=== PATIENT | male | born 1960 | race Caucasian/White ===

== ENCOUNTER 2016-10-12 13:44 | Emergency (ER) | payer OTHER ==
[~2016-10-12] VITALS: Ht 167.6 cm; Wt 58.5 kg
[~2016-10-12 13:44] MED LIST: CELE200C PO; METFORMIN; RIVA20TA PO
[2016-10-12 13:54] VITALS: Ht 167.6 cm; Wt 58.5 kg
[2016-10-12] MEDS ORDERED: FER325 PO (18:37)
[2016-10-12] MEDS ORDERED: TEMA30CA PO (18:38)
[2016-10-12] MEDS ORDERED: METF500T4 PO (18:39)
[2016-10-12] MEDS ORDERED: OMEP40CA6 PO (18:40)
[2016-10-12] MEDS ORDERED: SERT50TA6 PO (18:43)
[2016-10-12] MEDS ORDERED: TRAZ50TA18 PO (18:44)
[2016-10-12] MEDS ORDERED: DIATR MEGLU/DIATRIZOATE SODIUM 120 ML BTL ONE (19:37)
[2016-10-12 20:07] VITALS: BP 116/56; PULSE 77; RESP 16; TEMP 98.6
--- NOTE | 2016-10-12 20:14 | ERD ---
ER Documentation Chief Complaint Date/Time DATE: 10/12/16 TIME: 20:12 Chief Complaint DISLODGED GTUBE AT 1 PM TODAY HPI Patient is a 56-year-old male with previous cancer presents for a G-tube. He said that his G-tube came out at 1 PM today. He came to the ER. He did bring the G-tube in with him and the balloon has burst. The patient usually puts Ensure through the G-tube. He said that he is able to eat some by mouth. Upon review of old medical records this is the patient's sixth visit to the ER since 2013. His primary doctor is Dr. Lazaro Trujillo. ROS All systems reviewed and are negative except as per history of present illness. Medications Home Meds Reported Medications Trazodone Hcl* (Desyrel*) 50 Mg Tablet, 50 MG PO QHS, #30 TAB 10/12/16 Sertraline Hcl* (Sertraline Hcl*) 50 Mg Tablet, 50 MG PO DAILY, #30 TAB TAKE 25MG FOR 1 WEEK THEN 50MG DAILY 10/12/16 Omeprazole* (Omeprazole*) 40 Mg Capsule.dr, 40 MG PO DAILY, #30 CAP 10/12/16 Metformin* (Glucophage*) 500 Mg Tab, 500 MG PO WITH LUNCH DINNER, #60 TAB 10/12/16 Temazepam* (Temazepam*) 30 Mg Capsule, 30 MG PO HS Y for INSOMNIA, CAP 10/12/16 Ferrous Sulfate* (Ferrous Sulfate*) 325 Mg Tabec, 325 MG PO TID, TAB 10/12/16 Discontinued Reported Medications [Metformin] No Conflict Check 04/28/16 Celecoxib* (Celebrex*) 200 Mg Capsule, 200 MG PO DAILY, CAP 03/20/16 Rivaroxaban* (Xarelto*) 20 Mg Tablet, 20 MG PO DAILY, TAB HOLD PER PCP*PT HAS BEEN OFF THIS RX FOR 4 DAYS PER PT.* 11/03/14 Allergies Allergies: Coded Allergies: No Known Allergy (Unverified , 10/12/16) PMhx/Soc Anesthesia Reaction: No Hx Neurological Disorder: No Hx Respiratory Disorders: No Hx Cardiac Disorders: No Hx Psychiatric Problems: Yes Hx Miscellaneous Medical Probl: Yes (MICHAEL, DVT) Hx Alcohol Use: No Hx Substance Use: No Hx Tobacco Use: No FmHx Family History: No diabetes Physical Exam Vitals Vital Signs Date Time Temp Pulse Resp B/P Pulse Ox O2 Delivery O2 Flow Rate FiO2 10/12/16 20:07 98.6 77 16 116/56 99 Room Air 10/12/16 13:54 98.7 73 18 111/63 99 Physical Exam Const: No acute distress Head: Atraumatic Eyes: Normal Conjunctiva ENT: Normal External Ears, Nose and Mouth. Neck: Full range of motion..~ No meningismus. Resp: Clear to auscultation bilaterally Cardio: Regular rate and rhythm, no murmurs Abd: Soft, G-tube site in the left upper quadrant without any tube in place Skin: No petechiae or rashes Back: No midline or flank tenderness Ext: No cyanosis, or edema Neur: Awake and alert Psych: Normal Mood and Affect Results 24 hrs Current Medications Medications (Trade) Dose Ordered Sig/Andrez Route PRN Reason Start Time Stop Time Status Last Admin Dose Admin Diatrizoate Meglum/ Diatrizoate Sod (Gastrografin 66-10 Solution) 120 ml STK-MED ONCE .ROUTE 10/12/16 19:37 10/12/16 19:38 DC 10/12/16 20:07 Procedures/MDM G-tube Insertion by me: Sterile technique, local prep and lubrication, time out performed. Location: Epigastrum Device: 20 Nepali G-tube Technique: Claudia pressure with twisting motion. Balloon inflation Results: Gastric contents expressed. Compl: none X-ray Abdomen 1V Interpreted by me: Free Air: None Bowel Gas: Nonspecific Contrast: Intraluminal Patient is a 56-year-old male presents for G-tube replacement. I was able to dilate with a forceps in place a G-tube in the previous G-tube site. The patient tolerated the entire procedure. There was no blood loss. Patient will be discharged. Departure Diagnosis: Primary Impression: Encounter for feeding tube placement Condition: Fair Patient Instructions: Feeding Tube Replacement Referrals: LAZARO TRUJILLO MD (PCP) Additional Instructions: Call your primary care doctor TOMORROW for an appointment during the next 1 WEEK.Tell the secretary administrative assistant that you were referred from this facility.See the doctor sooner or return here if your condition worsens before your appointment time. FABIÁN SMITH MD Oct 12, 2016 20:14
--- NOTE | 2016-10-12 20:26 | RADRPT ---
PROCEDURE: XR Abdomen. CLINICAL INDICATION: Gastrostomy tube placement TECHNIQUE: AP abdomen x-ray. 25 cc of Gastrografin was administered. COMPARISON: None. FINDINGS: There is no evidence of obstruction. Contrast within the gastric lumen is seen. No extravasation of contrast is seen. There are no abnormal calcifications overlying the urinary tracts. No osseous les ion is seen. IMPRESSION: Contrast within the gastric lumen without evidence of extravasation indicating satisfactory placemen t of a gastrostomy tube. RPTAT: HPNM Physician Deisy Date Time Electronically viewed and signed by Physician Deisy on 10/12/2016 20:25 /
== END 2016-10-12 20:08 | disposition home or self-care (01) ==
LOC: E/R 13:44
DX: Z43.1 Encounter for attention to gastrostomy (principal); Z79.01 Long term (current) use of anticoagulants; Z79.4 Long term (current) use of insulin; Z85.830 Personal history of malignant neoplasm of bone
CPT/HCPCS: 43760; 74000; Z7502; Z7610

== ENCOUNTER 2017-04-30 14:20 | Outpatient (CLI) | payer OTHER ==
[~2017-04-30] VITALS: Ht 168.9 cm; Wt 53.9 kg
[~2017-04-30 14:20] MED LIST changes: -CELE200C PO; +FER325 PO; +METF500T4 PO; -METFORMIN; +OMEP40CA6 PO; -RIVA20TA PO; +SERT50TA6 PO; +TEMA30CA PO; +TRAZ50TA18 PO
[2017-04-30 14:27] VITALS: BP 90/58; PULSE 74; RESP 20; Ht 168.9 cm; Wt 53.9 kg
[2017-04-30] MEDS ORDERED: OXYC15TA G-TUBE (14:34)
[2017-04-30] MEDS ORDERED: ALBU90AE INHALATION (14:34)
[2017-04-30] MEDS ORDERED: CEPH500C PO (14:34)
--- NOTE | 2017-04-30 14:47 | PN ---
Date/Time of Note Date/Time of Note DATE: 04/30/17 TIME: 14:42 Outpatient Progress Note Chief Complaint G-tube site cellulitis/oral cancer/diabetes/jaw cancer HPI G-tube site cellulitis/patient had G-tube site cellulitis, patient was recently hospitalized, patient has new G-tube, no cellulitis, Patient also has old G-tube site opening completely closed, no bleeding or discharge, Oral cancer/patient had chemo and radiation, no complaint, Diabetes/no polydipsia polyuria hypoglycemia, Jaw cancer/no jaw pain, no active problem, Review of Systems Const: No Fever, no chills, no Wt. loss, no Fatigue, normal appetite, no diaphoresis. Eyes: No pain, no discharge, no redness, no visual change, no foreign body. ENT: No pain, no bleeding, no congestion, no sore throat, no dysphagia, no discharge or rhinitis. Lymph: No adenopathy, no tender nodes, no lymphedema. Resp: No SOB, no cough, no sputum, no wheezing, no chest pain. CV: No chest pain, no palpitaions, no GUAN, no PND, no edema. GI: Normal appetite, no pain, no nausea, no vomiting, no diarrhea, no blood, no constipation. G-tube site clean, old G-tube site closed, no bleeding discharge or redness, : No frequency, no urgency, no dysuria, no hematuria, no flank pain, no discharge, no bleeding. Musc: Mild occasional back pain, no neck pain, no knee pain, no restricted ROM. Skin: No rash, no skin lesions, no erythema, no laceration, no bruising, no pruritus. Neuro: No RAMIREZ, no dizziness, no syncope, no seizure, no focal-weakness. Endo: No polyuria, no polydypsia, no dry-skin, no temp-intolerance. Psych: No hallucinations, no depression, no anxiety, no suicidal ideation. Ext: No edema, no pain, no ulcer, no weakness. Physical Exam Vital Signs Date Time Temp Pulse Resp B/P Pulse Ox O2 Delivery O2 Flow Rate FiO2 04/30/17 14:27 97.9 74 20 90/58 98 Room Air General Appearance: A 57 year-old male who appears well-developed, well- nourished, in no acute distress. HEENT: Head normocephalic, atraumatic. Pupils equal, round, reactive to light and accommodate. Sclerae are no jaundice. Nasal turbinates pink without erythema or nasal discharge. Mucous membranes pink and moist without lesions. Oropharynx clear without any exudate or discharge. NECK: Supple. Trachea midline, No thyromegaly, No cervical lymphadenopathy, No mass, No carotid bruits, No JVD, Carotid pulses 2+ bilaterally. PULMONARY: Clear to auscultaion bilaterally, No retractions, Chest expansion symmetric bilaterally, no rales, no ronchi, no dulness on percussion. CARDIAC: Normal SI and S2, Regular rate and rythm, no murmur, gallop, or rub. GASTROINTESTINAL: Abdomen is soft, non-tender, Non Rigid, No distention, Positive bowel sounds x4 quadrants, Liver normal. Old G-tube site completely closed and new G-tube site clean, SKIN: Warm, dry, no rash, no bruise, no echmosis. EXTREMITIES: Bilateral lower extremities normal, no edema, no phlabitus, pulse palpable, no contracture. MUSCULOSKELETAL: Spine Normal, Non-tender, Normal range of motion, No swelling, no deformity, no clubbing, or cyanosis, the patient has no edema to bilateral lower extremities, dorsalis pedis pulses palpable bilaterally. NEUROLOGIC: The patient is awake, alert, oriented, responding to yes/no questions appropriately, moving all extremities, cranial nerve intact, normal strenght, normal power, normal coordination, normal gait. Allergies Coded Allergies: No Known Allergy (Unverified , 10/12/16) PMH Dysphagia/G-tube site cellulitis/oral cancer/jaw cancer/diabetes/alcohol abuse/ PUD/ Endoscopy/radiation and chemotherapy Social Hx No smoking at present patient used to smoke years ago, No drinking, Family Hx Noncontributory Patient History: Assessment/Plan Impression G-tube site cellulitis improving Oral cancer Diabetes Jaw cancer improved Plan Patient education done about his disease and condition, Patient encouraged to follow with the primary care physician, Patient continued to monitor weight, increase weight slightly, Continue G-tube feeding, patient also advised to follow with oncologist on as needed basis, Patient is all medication, no new refill, Medications Home Meds Reported Medications Oxycodone Hcl* (IR) (Oxycodone Hcl*) 15 Mg Tablet, 15 MG G-TUBE Q6 Y for PAIN LEVEL 6-10, TAB 04/30/17 Cephalexin* (Cephalexin*) 500 Mg Capsule, 500 MG PO Q6, #28 CAP 04/30/17 Albuterol Sulfate (Proair Respiclick) 90 Mcg Aer.pow.ba, 2 PUFFS INHALATION Q6 Y for SHORTNESS OF BREATH, #1 BOTTLE 04/30/17 Trazodone Hcl* (Desyrel*) 50 Mg Tablet, 50 MG PO QHS, #30 TAB 10/12/16 Omeprazole* (Omeprazole*) 40 Mg Capsule.dr, 40 MG PO DAILY, #30 CAP 10/12/16 Metformin* (Glucophage*) 500 Mg Tab, 500 MG PO WITH LUNCH DINNER, #60 TAB 10/12/16 Temazepam* (Temazepam*) 30 Mg Capsule, 30 MG PO HS Y for INSOMNIA, CAP 10/12/16 Ferrous Sulfate* (Ferrous Sulfate*) 325 Mg Tabec, 325 MG PO TID, TAB 10/12/16 Discontinued Reported Medications Sertraline Hcl* (Sertraline Hcl*) 50 Mg Tablet, 50 MG PO DAILY, #30 TAB TAKE 25MG FOR 1 WEEK THEN 50MG DAILY 10/12/16 ERIBERTO FERGUSON MD Apr 30, 2017 14:47
== END 2017-04-30 17:00 | disposition home or self-care (01) ==
LOC: DCC 14:20
PROVIDERS: ATTEND Internal Medicine
DX: K94.22 Gastrostomy infection (principal); L03.311 Cellulitis of abdominal wall; Y83.3 Surgical operation with formation of external stoma as the cause of abnormal reaction of the patient, or of later complication, without mention of misadventure at the time of the procedure; E11.9 Type 2 diabetes mellitus without complications; Z85.89 Personal history of malignant neoplasm of other organs and systems; Z85.819 Personal history of malignant neoplasm of unspecified site of lip, oral cavity, and pharynx; Z79.84 Long term (current) use of oral hypoglycemic drugs
CPT/HCPCS: G0463

== ENCOUNTER → 2017-05-13 | Outpatient (CLI) | payer OTHER ==
[~2017-05-13] VITALS: Ht 166.4 cm; Wt 53.6 kg
[~2017-05-13] MED LIST changes: +ALBU90AE INHALATION; +CEPH500C PO; +OXYC15TA G-TUBE; -SERT50TA6 PO
[2017-05-13 11:49] VITALS: BP 94/52; PULSE 66; RESP 18
[2017-05-13 11:50] VITALS: Ht 166.4 cm; Wt 53.6 kg
== END | disposition home or self-care (01) ==
LOC: DCC 11:22
PROVIDERS: ATTEND Internal Medicine
DX: Z47.1 Aftercare following joint replacement surgery (principal); Z96.643 Presence of artificial hip joint, bilateral

== ENCOUNTER 2017-08-30 14:27 | Outpatient (CLI) | END 2017-08-30 16:58 | disposition home or self-care (01) ==

== ENCOUNTER 2017-09-09 13:45 | Outpatient (CLI) | END 2017-09-09 15:46 | disposition home or self-care (01) ==

== ENCOUNTER 2017-09-21 13:55 | Outpatient (CLI) | END 2017-09-21 15:49 | disposition home or self-care (01) ==